=== PATIENT | female | born 1965 | race Caucasian/White ===

== ENCOUNTER 2017-08-12 19:04 | Emergency (ER) | payer MEDICAID ==
[~2017-08-12] VITALS: Ht 165.1 cm; Wt 54.4 kg
[~2017-08-12 19:04] MED LIST: ESCI20TA PO; KLO2 PO
[2017-08-12 19:08] VITALS: BP_SYST 130
[2017-08-12] MEDS ORDERED: NACL 0.9% 1,000 ML IV ONE (19:30)
[2017-08-12] MEDS ORDERED: KETOROLAC TROMETHAMINE 30 MG VIAL IVP ONE (19:30)
[2017-08-12 19:49] LABS: BASOPHILS # (AUTO) 0.1 K/uL (0.0-0.2); BASOPHILS % (AUTO) 0.7 % (0.0-2.0); EOSINOPHILS # (AUTO) 0.3 K/uL (0.0-0.4); EOSINOPHILS % (AUTO) 4.1 % (0.0-4.0); HEMATOCRIT 42.2 % (36-48); HEMOGLOBIN 13.9 g/dL (12.0-16.0); LYMPHOCYTES # (AUTO) 2.3 K/uL (1.0-5.5); LYMPHOCYTES % (AUTO) 28.8 % (20.5-51.5); MEAN CORPUSCULAR HEMOGLOBIN 29 pg (27-31); MEAN CORPUSCULAR HGB CONC 33 % (32-36); MEAN CORPUSCULAR VOLUME 88 fL (79.0-98.0); MONOCYTES # (AUTO) 0.5 K/uL (0.0-1.0); MONOCYTES % (AUTO) 6.2 % (1.7-9.3); NEUTROPHILS # (AUTO) 4.7 K/uL (1.8-7.7); NEUTROPHILS % (AUTO) 60.2 % (40.0-70.0); PLATELET COUNT (AUTO) 317 K/uL (130-430); RED BLOOD CELL COUNT(AUTO) 4.82 MIL/uL (4.2-6.2); RED CELL DISTRIBUTION WIDTH 12.1 % (9.0-15.0); WHITE BLOOD COUNT (AUTO) 7.9 K/uL (4.8-10.8)
[2017-08-12 19:59] LABS: CALCIUM 10.2 mg/dL (8.4-11.0); CREATININE 0.61 mg/dL (0.55-1.30)
[2017-08-12 20:03] LABS: ALBUMIN 3.9 g/dL (3.4-4.8); TOTAL BILIRUBIN 0.6 mg/dL (0.0-1.0)
[2017-08-12 20:07] LABS: BILIRUBIN,URINE NEGATIVE (NEGATIVE); CLARITY/URINE CLEAR (CLEAR); COLOR,URINE YELLOW (YELLOW); GLUCOSE,URINE NEGATIVE (NEGATIVE); KETONES,URINE NEGATIVE (NEGATIVE); LEUKOCYTE ESTERASE ,URINE TRACE (NEGATIVE); NITRITE, URINE NEGATIVE (NEGATIVE); PROTEIN URINE NEGATIVE (NEGATIVE); UROBILINOGEN,URINE 0.2 (0.2-1.0)
[2017-08-12 20:10] LABS: BLOOD, URINE TRACE (NEGATIVE)
[2017-08-12 20:22] LABS: BACTERIA,URINE FEW /HPF (None Seen); RBC,URINE 0-3 /HPF (0-3)
[2017-08-12 20:23] LABS: MUCUS,URINE None Seen /LPF (None Seen)
[2017-08-12] MEDS ORDERED: MAGNESIUM CITRATE 300 ML ORAL SOLUTION PO ONE (20:30)
[2017-08-12] MEDS ORDERED: CIPROFLOXACIN HCL 500 MG TABLET PO ONE (20:30)
[2017-08-12 20:56] VITALS: BP_SYST 124
== END 2017-08-12 20:56 | disposition home or self-care (01) ==
LOC: SED 19:04
DX: N10 Acute pyelonephritis (principal); K59.00 Constipation, unspecified; R03.0 Elevated blood-pressure reading, without diagnosis of hypertension; F32.9 Major depressive disorder, single episode, unspecified; Z88.5 Allergy status to narcotic agent; Z90.49 Acquired absence of other specified parts of digestive tract
CPT/HCPCS: 36415; 74176; 80053; 81000; 81025; 85025; 87086; 96361; 96374; 99285; J1885; J7030

== ENCOUNTER 2017-09-29 20:02 | Emergency (ER) | payer SELFPAY ==
[~2017-09-29] VITALS: Ht 165.1 cm; Wt 54.4 kg
--- NOTE | 2017-09-29 20:02 | NUR ---
Note mayra in ED - 09/29/17 at 2147 by [email or web address] Patient to ER bed [address] [facility] rails up. Report given to BAKARI TABARES.
[2017-09-29] MEDS ORDERED: NACL 0.9% 1,000 ML IV ONE ×2 (20:10→22:33)
[2017-09-29 20:15] VITALS: BP_SYST 141
[2017-09-29 20:43] LABS: BILIRUBIN,URINE NEGATIVE (NEGATIVE); BLOOD, URINE NEGATIVE (NEGATIVE); CLARITY/URINE CLEAR (CLEAR); COLOR,URINE YELLOW (YELLOW); GLUCOSE,URINE NEGATIVE (NEGATIVE); KETONES,URINE NEGATIVE (NEGATIVE); LEUKOCYTE ESTERASE ,URINE TRACE (NEGATIVE); NITRITE, URINE NEGATIVE (NEGATIVE); PH,URINE 5.5 (5.0-8.0); PROTEIN URINE NEGATIVE (NEGATIVE); UROBILINOGEN,URINE 0.2 (0.2-1.0)
[2017-09-29 20:58] LABS: BACTERIA,URINE RARE /HPF (None Seen); RBC,URINE 0-3 /HPF (0-3)
--- NOTE | 2017-09-29 21:27 | NUR ---
Patient to ER bed 03 to gown for evaluation. Side rails up.
--- NOTE | 2017-09-29 21:30 | NUR ---
Pt started having lower back pain with burning during urination since this morning. Will continue to monitor. Will continue to monitor. No distress noted.
--- NOTE | 2017-09-29 21:30 | NUR ---
Note mayra in EDM - 09/29/17 at 2305 by ZURI Pt started having lower back pain with buring during urination since this morning. WIll continue to monitor. Will continue to monitor. No distress noted.
--- NOTE | 2017-09-29 22:24 | NUR ---
ER Dr. Kim at bedside examining patient.
[2017-09-29] MEDS ORDERED: cefTRIAXone 1 GM IVPB PREMIX 50 ML IV ONE (22:45)
[2017-09-29] MEDS ORDERED: KETOROLAC TROMETHAMINE 30 MG VIAL IVP ONE (22:45)
[2017-09-29 22:56] LABS: BASOPHILS # (AUTO) 0.1 K/uL (0.0-0.2); BASOPHILS % (AUTO) 1.2 % (0.0-2.0); EOSINOPHILS # (AUTO) 0.3 K/uL (0.0-0.4); EOSINOPHILS % (AUTO) 4.6 % (0.0-4.0); HEMATOCRIT 39.5 % (36-48); HEMOGLOBIN 13.4 g/dL (12.0-16.0); LYMPHOCYTES % (AUTO) 28.9 % (20.5-51.5); MEAN CORPUSCULAR HEMOGLOBIN 29 pg (27-31); MEAN CORPUSCULAR HGB CONC 34 % (32-36); MEAN CORPUSCULAR VOLUME 86 fL (79.0-98.0); MONOCYTES # (AUTO) 0.5 K/uL (0.0-1.0); NEUTROPHILS % (AUTO) 58.3 % (40.0-70.0); PLATELET COUNT (AUTO) 293 K/uL (130-430); RED BLOOD CELL COUNT(AUTO) 4.58 MIL/uL (4.2-6.2); RED CELL DISTRIBUTION WIDTH 12.4 % (9.0-15.0); WHITE BLOOD COUNT (AUTO) 6.9 K/uL (4.8-10.8)
[2017-09-29 23:04] LABS: CALCIUM 9.2 mg/dL (8.4-11.0); CREATININE 0.52 mg/dL (0.55-1.30); POTASSIUM 3.5 mmol/L (3.5-5.1)
--- NOTE | 2017-09-29 23:45 | NUR ---
Pt started having redness and puffiness of the L eye. Pt felt systemic itchiness and her chest started getting red. Airway patent. Pt took a puff from her own inhaler of albuterol. Dr. Kim made aware.
[2017-09-30] MEDS ORDERED: DIPHENHYDRAMINE INJ 50 MG/ML VIAL IVP ONE
[2017-09-30] MEDS ORDERED: methylPREDNISolone SOD SUCC/PF 62.5 MG/ML VIAL IVP ONE
[2017-09-30] MEDS ORDERED: FAMOTIDINE PF 20 MG/2 ML VIAL IVP ONE
--- NOTE | 2017-09-30 00:45 | NUR ---
Pt is not feeling itchy, no redness noted, and feels much better. Slight swelling noted to L eye. made aware.
[2017-09-30 01:14] VITALS: BP_SYST 138
--- NOTE | 2017-09-30 01:14 | NUR ---
Patient given written and verbal discharge instructions and verbalizes understanding. ER MD discussed with patient the results and treatment provided. Patient in stable condition. ID arm band removed. IV catheter removed intact and dressing applied, no active bleeding. Rx of Bactrim and prednisone given. Patient educated on pain management and to follow up with PMD. Pain Scale 0/10. Opportunity for questions provided and answered.
== END 2017-09-30 01:14 | disposition home or self-care (01) ==
LOC: SED 20:02
DX: M54.5 Low back pain (principal); N39.0 Urinary tract infection, site not specified; Z90.49 Acquired absence of other specified parts of digestive tract; Z88.6 Allergy status to analgesic agent; Z88.8 Allergy status to other drugs, medicaments and biological substances; Z79.899 Other long term (current) drug therapy
CPT/HCPCS: 36415; 80048; 81000; 85025; 87086; 96365; 96368; 96374; 96375; 99284; J0696; J1200; J1885; J2930; J3490; J7030

== ENCOUNTER 2021-04-04 13:43 | Emergency (ER) | payer MEDICAID ==
[~2021-04-04] VITALS: Ht 162.6 cm; Wt 65.8 kg
[2021-04-04 13:45] VITALS: BP_SYST 146
[2021-04-04] MEDS ORDERED: CYCLOBENZAPRINE HCL 10 MG TABLET (FLEXERIL) PO ONE (14:30)
[2021-04-04] MEDS ORDERED: ACETAMINOPHEN 500 MG TABLET PO ONE (14:30)
[2021-04-04] MEDS ORDERED: KETOROLAC TROMETHAMINE 60 MG/2 ML VIAL IM ONE (14:30)
[2021-04-04] MEDS ORDERED: ONDA4TAB5 PO (15:09)
[2021-04-04] MEDS ORDERED: ACET325T53 PO (15:09)
[2021-04-04] MEDS ORDERED: CYCL-10 PO (15:09)
[2021-04-04 15:19] VITALS: BP_SYST 146
== END 2021-04-04 15:20 | disposition home or self-care (01) ==
LOC: SED 13:43
DX: M54.41 Lumbago with sciatica, right side (principal); M54.42 Lumbago with sciatica, left side; F32.9 Major depressive disorder, single episode, unspecified; Z88.5 Allergy status to narcotic agent; Z79.899 Other long term (current) drug therapy
CPT/HCPCS: 93971; 96372; 99284; J1885